=== PATIENT | male | born 1965 | race Caucasian/White ===

== ENCOUNTER 2016-08-19 09:58 | Emergency (ER) | payer MEDICARE ==
[~2016-08-19] VITALS: Ht 180.3 cm; Wt 101.0 kg
[~2016-08-19 09:58] MED LIST: PERC10TA27 PO; VENL75 PO
[2016-08-19 09:59] VITALS: BP 137/99; PULSE 74; RESP 16; TEMP 98.2; O2SAT 96
[2016-08-19] MEDS ORDERED: LISI2.5T3 PO (10:09)
--- NOTE | 2016-08-19 10:34 | PD ---
HPI Chief Complaint: Musculoskeletal Complaint Time Seen by Provider: 10:25 Travel History International Travel<30 days: No Contact w/Intl Traveler<30days: No Traveled to known affect area: No History of Present Illness HPI Patient presents with aggravated left hip pain. Normally uses a cane for a bad back. Denies any misstep or fall. States it is painful to bear weight. PFSH Past Medical History Hypertension: Yes Social History Alcohol Use: Yes (OCC) Tobacco Use: Yes (1/2-1 PPD) Substance Use: No Allergies-Medications (Allergen,Severity, Reaction): Coded Allergies: Morphine (Unverified Allergy, Severe, CONVULSIONS, 08/19/16) Reported Meds & Prescriptions Reported Meds & Active Scripts Active Reported Lisinopril 2.5 Mg Tab 2.5 Mg PO BID Review of Systems General / Constitutional: No: Fever Eyes: No: Visual changes HENT: No: Headaches Cardiovascular: No: Chest Pain or Discomfort Respiratory: No: Shortness of Breath Gastrointestinal: No: Abdominal Pain Genitourinary: No: Dysuria Musculoskeletal: No: Pain Skin: No Rash Neurologic: No: Weakness Psychiatric: No: Depression Endocrine: No: Polydipsia Hematologic/Lymphatic: No: Easy Bruising Physical Exam Narrative GENERAL: Well-nourished, well-developed patient. SKIN: Focused skin assessment warm/dry. HEAD: Normocephalic. EYES: No scleral icterus. No injection or drainage. NECK: Supple, trachea midline. No JVD or lymphadenopathy. CARDIOVASCULAR: Regular rate and rhythm without murmurs, gallops, or rubs. RESPIRATORY: Breath sounds equal bilaterally. No accessory muscle use. GASTROINTESTINAL: Abdomen soft, non-tender, nondistended. MUSCULOSKELETAL: No cyanosis, or edema. BACK: Nontender without obvious deformity. No CVA tenderness. Examination left hip reveals no pain on flexion extension, discomfort with internal and external rotation Data Data Last Documented VS Vital Signs Date Time Temp Pulse Resp B/P Pulse Ox O2 Delivery O2 Flow Rate FiO2 08/19/16 09:59 98.2 74 16 137/99 96 Orders Hip, Lat Only W Ap Pelvis (08/19/16 ) MDM Medical Decision Making Medical Screen Exam Complete: Yes Emergency Medical Condition: Yes Differential Diagnosis Left hip fracture, left hip osteoarthritis, left hip bursitis Narrative Course Assessment and plan discussed with patient bedside. Films are negative for acute fracture or dislocation. Diagnosis Primary Impression: Osteoarthritis of left hip Qualified Code: M16.12 - Osteoarthritis of left hip, unspecified osteoarthritis type Patient Instructions: General Instructions Additional Instructions: Nonsteroidal anti-inflammatories ice after activity, gentle range of motion exercises. Follow-up with PCP. Return to emergency room with any new onset of symptoms. Continue cane use. Med/Other Pt SpecificInfo: Prescription(s) given Scripts Hydrocodone-Acetaminophen 5-325 mg Tab1 Tab PO Q6H PRN (PAIN) #30 TAB Ref 0 Prov:Parish Whipple MD 08/19/16 Disposition: 01 DISCHARGE HOME Condition: Good Parish Whipple MD Aug 19, 2016 10:33
--- NOTE | 2016-08-19 11:04 | RADHPO ---
EXAM DATE/TIME: 08/19/2016 10:32 [facility] COMPARISON: No previous studies available for comparison. INDICATIONS : Sudden onset of left hip area pain, pain increasing in severity MEDICAL HISTORY : None. SURGICAL HISTORY : None. ENCOUNTER: Initial ACUITY: 3 days PAIN SCORE: 10/10 LOCATION: Left hip FINDINGS: A lateral view of the left hip with AP pelvis was obtained. No definite fractures, dislocations, lyt ic or sclerotic lesions are seen. The joint space is well maintained. CONCLUSION: Negative for fracture or dislocation. Follow up in 7-10 days is suggested if symptoms persist.. Berhane Fowler MD FACR on August 19, 2016 at 11:02 Board Certified Radiologist. This report was verified electronically.
[2016-08-19] MEDS ORDERED: HYDR-3516 PO (11:15)
[2016-08-19] MEDS ORDERED: KETOROLAC TROMETHAMINE 60 MG/2 ML (IM) VIAL IM ONE (11:15)
== END 2016-08-19 11:31 | disposition home or self-care (01) ==
LOC: PHEFT 09:58
DX: M16.12 Unilateral primary osteoarthritis, left hip (principal); I10 Essential (primary) hypertension; F17.210 Nicotine dependence, cigarettes, uncomplicated
CPT/HCPCS: 73501; 96372; 99284; J1885

== ENCOUNTER 2017-07-03 15:09 | Emergency (ER) | payer MEDICARE ==
[~2017-07-03] VITALS: Ht 180.3 cm; Wt 100.0 kg
[~2017-07-03 15:09] MED LIST changes: +HYDR-3516 PO; +LISI2.5T3 PO; -PERC10TA27 PO; -VENL75 PO
[2017-07-03 15:12] VITALS: BP 150/90; PULSE 95; RESP 16; TEMP 97.6; O2SAT 94
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
--- NOTE | 2017-07-03 16:08 | RADRPT ---
EXAM DATE/TIME: 07/03/2017 15:45 [facility] COMPARISON: No previous studies available for comparison. INDICATIONS : Right shoulder pain from unknown injury. MEDICAL HISTORY : Prior right scapula fracture. SURGICAL HISTORY : None. ENCOUNTER: Initial ACUITY: 1 day PAIN SCORE: 10/10 LOCATION: Right shoulder FINDINGS: Two view examination of the right shoulder demonstrates no evidence of fracture or dislocation. The glenohumeral and acromioclavicular joints are maintained. A number of healed rib fractures are noted. Bony mineralization is normal. Some prominence involving the tip of the scapula CONCLUSION: Numerous old rib fractures. May be old healed fracture involving the tip of the scapula. No definite acute fractures seen. Luis Giordano MD on July 03, 2017 at 16:05 Board Certified Radiologist. This report was verified electronically.
[2017-07-03] MEDS ORDERED: KETOROLAC TROMETHAMINE 60 MG/2 ML (IM) VIAL IM ONE (16:15)
[2017-07-03] MEDS ORDERED: IBUP1TAB7 PO (16:20)
[2017-07-03] MEDS ORDERED: TRAM50 PO (16:20)
== END 2017-07-03 16:25 | disposition home or self-care (01) ==
LOC: PHEFT 15:09
DX: M25.511 Pain in right shoulder (principal); F17.200 Nicotine dependence, unspecified, uncomplicated
CPT/HCPCS: 73030; 96372; 99283; J1885